=== PATIENT | male | born 1980 | race Caucasian/White ===

== ENCOUNTER 2023-08-17 23:13 | Emergency (ER) | payer OTHER, SELFPAY ==
[2023-08-17 23:13] VITALS: BMI 27.1
[2023-08-17 23:38] VITALS: BP 140/90
[2023-08-17 23:58] VITALS: BP 146/76
[2023-08-18] VITALS: BP 137/66
[2023-08-18 00:05] LABS: Hematocrit 42.7 % (39.0-52.0); Hemoglobin 15.2 g/dL (13.0-18.0); Mean Corp Hgb Conc. 35.6 g/dL (33.0-37.0); Mean Corpuscular Hgb 29.3 pg (27.0-31.0); Mean Corpuscular Volume 82.3 fL (80.0-94.0); Mean Platelet Volume 9.4 fL (7.4-10.4); Nucleated Red Blood Cells % 0 % (-); Platelet Count 291 10^3/uL (130-400); Red Blood Cell Count 5.19 10^6/uL (4.70-6.10); Red Cell Dist. Width 13.1 % (11.5-14.5); White Blood Cell Count 10.4 10^3/uL (4.8-10.8)
[2023-08-18 00:07] LABS: Urine Albumin 1+ (Neg - Trace); Urine Bilirubin 1+ (Negative); Urine Character Clear (Clear); Urine Color Amber; Urine Glucose Negative (Negative); Urine Ketone 1+ (Negative); Urine Leukocyte Trace (Negative); Urine Nitrite Negative (Negative); Urine Occult Blood Negative (Negative); Urine Specific Gravity 1.025 (<1.030); Urine Urobilinogen 2+ (Neg - 1+)
[2023-08-18 00:18] LABS: ALT (SGPT) 77 U/L (0-50); AST (SGOT) 49 U/L (17-59); Alkaline Phosphatase 96 U/L (38-126); Blood Urea Nitrogen 20 mg/dl (9-20); Calcium 8.9 mg/dl (8.4-10.2); Carbon Dioxide 29 mmol/L (22-30); Chloride 99 mmol/L (98-107); Estimated Creatinine Clearance 102 ml/min; Glucose 111 mg/dl (70-99); Potassium 3.5 mmol/L (3.5-5.1); Sodium 131 mmol/L (135-145); Total Bilirubin 0.6 mg/dl (0.2-1.3); Total Protein 6.6 g/dl (6.3-8.2); eGFR > 60.00
[2023-08-18] MEDS: NSS 500 IV (01:00)
[2023-08-18 01:31] LABS: Urine Mucus Moderate
[2023-08-18 01:32] LABS: Urine Bacteria Many (Negative)
[2023-08-18 02:06] LABS: Absolute Neutrophils -Man Diff 5.3 10^3/uL (1.4-6.5); Atypical Lymphocytes 16 %; Band Neutrophils 6 % (0-3); Eosinophils 1 % (0-6); Lymphocytes 27 % (20-51); Monocytes 5 % (2-9); Platelets Checked Yes; Segmented Neutrophils 45 % (42-75)
[2023-08-18 02:07] LABS: Normal RBC Morphology Yes; Total Cells Counted 100
--- NOTE | 2023-08-18 02:27 | ED.GENMED ---
Addendum entered and electronically signed by Brandon Torres PA-C 08/21/23 09:45:
Pt called w/ questions about UCx results. UCx negative, pt reporting continued fevers despite compliance w/ abx. C/O dark urine, headaches, neck discomfort. Reviewed chart, no clear infectious etiology identified. D/W pt possibilities including but
not limited to viral meningitis, Lyme, viral syndrome, inflammatory mediated rhabdo. Advised return to ED for re-evaluation vs PCP f/u, pt will contact PCP
Original Note:
History of Present Illness
General
Chief Complaint: Abdominal Pain
Source: patient
Exam Limitations: none
Time Seen by Provider: 08/17/23 23:59
Nursing documentation reviewed up to this point in time: agreed with
Travel History
Have you had any contact with someone who has COVID-19?: No
Do you have any symptoms of coronavirus? Fever > 100 degrees, chills, cough, shortness of breath, sore throat, loss of taste or smell, muscle aches, or headache?: No
History of Present Illness
History of Present Illness:
43-year-old male with a past medical history of GERD who presents to the emergency room for evaluation of abdominal pain, fever, urinary symptoms. Patient reports onset of symptoms today�he reports an intermittent crampy pain in the left lower
quadrant. Occasional radiation to the flank. He reports that he has had associated difficulty urinating today and dark urine. He says that he had a low-grade fever to 100.5 �F and felt a bit clammy. Decided to come to the emergency room to be
assessed. He does note that he has been on antibiotics recently for an infection in his finger�he says that he was seen in urgent care for a finger infection 10 days ago and was started on Augmentin and completed this course with improvement in
those symptoms. Denies any diarrhea or constipation. Denies any nausea or vomiting. Denies any other complaints today.
Past History
Past History
ED Past Medical History: None; Negative HTN or Hypercholesterolemia
ED Past Surgical History: None
Social History
Tobacco: Non-smoker
Alcohol: Occasional
Drug: None
Personal:
Living: with family
Employment: Employed
Family History
Family History: Diabetes (Mother), CAD (Mother) and Other; Negative Early CAD
Review of Systems
Review of Systems
All Other Systems: ROS reviewed and negative except as documented in HPI and ROS
Constitutional: Reports fever and chills
EENT: Denies sore throat or runny nose
Respiratory: Denies cough or trouble breathing
Cardiac: Denies chest pain or palpitations
ABD/GI: Reports abdominal pain; Denies nausea, vomiting, diarrhea or constipated
: Reports flank pain, difficulty voiding and dark urine; Denies frequency
Musculoskeletal: Denies neck pain or back pain
Neurological: Denies headache, weakness or numbness
Phy Exam
Physical Exam
Physical Exam:
General: Awake, alert, oriented x3; no acute distress
Head: Normocephalic, atraumatic
Eyes: Conjunctiva normal, sclera anicteric
Throat: Airway intact, handling secretions
Neck: Trachea midline, supple without meningismus
Lungs: Clear to auscultation bilaterally, no wheezing, rales, rhonchi
Heart: Regular rate and rhythm, no murmurs, gallops, or rubs
Abd: Soft, non distended, minimal tenderness left lower quadrant with no abdominal masses
Neuro: Cranial nerves grossly intact, speech fluid
Skin: no rash
Extremities: No edema in extremities, equal pulses in all extremities
Scores
Heart Failure Risk
Heart Failure Risk Score: Not Applicable
Heart Score for Chest Pain Patients
STEMI patient?: Not applicable
Withdrawal Assessment of Alcohol
Withdrawal Assessment Completed?: Not applicable
Course
Orders/Labs/Results
Orders:
Orders
08/17/23 23:56
Complete Blood Count/With Diff Urgent
Comprehensive Metabolic Panel Urgent
Manual Differential Urgent
Urine Microscopic Reflex Cult Urgent
Urine Reflex Culture from UA [Urinalysis Reflex To Culture] Urgent
Date Specimen was Collected: 08/17/23
Time Specimen was Collected: 23:55
Urine Culture Urgent
CHERYL Source: U
Specimen Description:
Date Specimen was Collected: 08/17/23
Time Specimen was Collected: 23:55
08/18/23 00:51
CT Abd/pelvis W Iv Cont Urgent
Comment:
Reason For Exam: LLQ pain
Bladder Scan- Treatment ONCE
0.9% Sodium Chloride 500 ml [Nss] 500 ml IV BOLUS
Abnormal Lab Results
08/17/23
23:56
Band Neutrophils 6 H %
(0-3)
Sodium 131 L mmol/L
(135-145)
Glucose 111 H mg/dl
(70-99)
ALT 77 H U/L
(0-50)
Urine Ketones 1+ A
(Negative)
Urine Bilirubin 1+ A
(Negative)
Urine Urobilinogen 2+ A
(Neg - 1+)
Leukocyte Esterase Rfl Trace A
(Negative)
Urine RBC 3-6 A /HPF
(0-2)
Urine Bacteria (Reflex) Many A
(Negative)
Urine Albumin (Reflex) 1+ A
(Neg - Trace)
08/17/23 23:56
08/17/23 23:56
Vital Signs
Initial and Last Documented VS:
Initial Vital Signs
Temp Pulse Resp BP Pulse Ox
37.1 C 64 16 140/90 99
08/17/23 23:38 08/17/23 23:38 08/17/23 23:38 08/17/23 23:38 08/17/23 23:38
Last Documented Vital Signs
Temp Pulse Resp BP Pulse Ox
37.1 C 69 22 137/66 96
08/17/23 23:38 08/18/23 02:30 08/18/23 02:30 08/18/23 00:00 08/18/23 00:45
MDM/Problems Addressed
Differential Diagnosis Includes:
UTI, diverticulitis, nephrolithiasis, colitis
MDM/Problems Addressed:
43-year-old male presents for evaluation of abdominal pain that started today associated with some urinary issues and a low-grade fever. Vital signs normal here. Physical exam as above. Plan to place IV check labs including a CBC and a CMP; will
check urinalysis. Will send for CT of the abdomen pelvis. Will provide some fluids. Monitor closely reassess after the above.
Labs reviewed: CBC significant only for slightly elevated bands, CMP no clinically significant abnormalities. Urinalysis positive for infection with many bacteria and pyuria. CT of the abdomen pelvis shows no acute intra-abdominal pathology, no
bowel obstruction, normal-appearing appendix, no nephrolithiasis or hydronephrosis, no signs of diverticulitis. Reassessment vital stable still no fever here. I think he is stable for discharge at this [id number] with his primary doctor as an
outpatient. Will start on antibiotic for urinary tract infection�spoke with patient, no risk factors for STD. Patient is comfortable with this plan. We spoke in detail about return precautions and all questions were answered.
*Radiology
Radiology exam reviewed: radiology read reviewed
*Pulse Oximetry
Patient hypoxic: no
*Critical Care Note
Total Time (30-74mins, 75-104mins- exclusive of procedures): Not Applicable
Data Reviewed
Source: patient and records
Patient Management
Social determinants of health affecting care: Strong social support
ED Attending Note
-
Portions of this chart may have been created with voice recognition software.� Occasional wrong word or��sound alike� substitutions may have occurred due to the inherent limitations of voice recognition software.
Discharge Plan
Departure
Patient Disposition: Home (Routine Discharge)
Date of Disposition: 08/18/23
Time of Disposition: 02:47
Patient with high blood pressure during this ER visit?: No
Discharge Problem:
Acute UTI
Instructions: Urinary Tract Infection, Adult (DC)
Prescriptions:
New
sulfamethoxazole-trimethoprim [Bactrim DS] 800-160 mg tablet
1 tab PO BID 10 Days Qty: 20 0RF
Referrals:
El Harper DO [Family Provider] - Call in 1-3 days for appt
Activity Restrictions/Additional Instructions:
Thank you for visiting the Emergency Department at [facility].
1. Please schedule a follow up appointment as directed. Call first thing tomorrow morning to make an appointment.
2. If indicated, please take your medications as instructed and indicated on discharge paperwork.
3. If any of your symptoms do not improve, or persist, or become more severe within 6-12 hours, please return to the emergency department for further care.
4. Please return to the emergency department if you develop a headache, neck pain/stiffness, fever greater than 100.4F, chest pain, shortness of breath, persistent nausea, vomiting, slurred speech, difficulty walking, numbness/tingling, weakness,
signs of infection or any other symptoms that are worrisome to you.
Please call [phone] if you have any questions.
Interventions
Interventions:
*Risk Screen - Suicide Last Done: 08/17/23 23:38
*Neglect/Abuse Screening Last Done: 08/17/23 23:38
ED- Fall Risk Assessment Last Done: 08/18/23 00:01
*ED COVID-19 Vaccine History Last Done: 08/17/23 23:38
BV-Dgoewi-Lqzmzybabq Assessment Last Done: 08/18/23 00:01
Discharge Date and Time
Print Language: SYRIAN
[2023-08-18] MEDS: BACTRIM DS 800 MG/160 MG 1 TABLET PO (02:55)
== END 2023-08-18 03:09 | disposition home or self-care (01) ==
LOC: EMR 23:13
PROVIDERS: Emergency Medicine; EMERGENCY PHYSICIAN Emergency Medicine; FAMILY PHYSICIAN Family Medicine
DX: N39.0 Urinary tract infection, site not specified (principal)
CPT/HCPCS: 99285; 96360; 51798; 74177; 80053; 81003; 81015; 85025; 87086; Q9967